=== PATIENT | female | born 1970 | race Two or more races ===

== ENCOUNTER → 2023-07-08 11:27 | Outpatient (REF) | payer BC, SELFPAY | LOC: WDC 11:27 | PROVIDERS: ATTENDING PHYSICIAN Obstetrics & Gynecology; FAMILY PHYSICIAN Family Medicine | DX: Z12.31 Encounter for screening mammogram for malignant neoplasm of breast (principal) | CPT/HCPCS: 77063; 77067 ==

== ENCOUNTER → 2023-07-13 18:18 | Outpatient (REF) | payer BC, SELFPAY | LOC: RAD 18:18 | PROVIDERS: ATTENDING PHYSICIAN Family Medicine | DX: M54.50 Low back pain, unspecified (principal) | CPT/HCPCS: 72110 ==

== ENCOUNTER → 2024-02-15 11:38 | Outpatient (REF) | payer BC, SELFPAY | LOC: HWRAD 11:38 | PROVIDERS: ATTENDING PHYSICIAN Chiropractor; FAMILY PHYSICIAN Family Medicine | DX: M54.51 Vertebrogenic low back pain (principal) | CPT/HCPCS: 72110 ==

== ENCOUNTER → 2024-03-02 06:59 | Outpatient (REF) | payer BC, SELFPAY | LOC: MRI 06:59 | PROVIDERS: ATTENDING PHYSICIAN Family Medicine | DX: M54.16 Radiculopathy, lumbar region (principal); M47.816 Spondylosis without myelopathy or radiculopathy, lumbar region | CPT/HCPCS: 72148 ==

== ENCOUNTER → 2024-07-06 10:02 | Outpatient (REF) | payer BC, SELFPAY | LOC: RAD 10:02 | PROVIDERS: ATTENDING PHYSICIAN Neurological Surgery; FAMILY PHYSICIAN Family Medicine | DX: Z98.1 Arthrodesis status (principal) | CPT/HCPCS: 72100 ==

== ENCOUNTER → 2025-02-11 11:43 | Outpatient (REF) | payer BC, SELFPAY | LOC: WDC 11:43 | PROVIDERS: ATTENDING PHYSICIAN Family Medicine | DX: Z12.31 Encounter for screening mammogram for malignant neoplasm of breast (principal) | CPT/HCPCS: 77063; 77067 ==